=== PATIENT | female | born 1975 | race Caucasian/White ===

== ENCOUNTER 2018-03-24 11:04 | Emergency (ER) | payer MEDICAID, OTHER ==
[~2018-03-24] VITALS: Ht 162.6 cm; Wt 68.0 kg
[~2018-03-24 11:04] MED LIST: AQUAPHOR OINTM396 GM TP; KEFLEX500 MG ORAL; LEVAQUIN500 MG ORAL; NORCO 5-325 TA1 EACH ORAL; ZANTAC150 MG ORAL
[2018-03-24] MEDS ORDERED: NKM (11:12)
[2018-03-24] MEDS ORDERED: Acetaminophen 500mg (ES) tab ORAL ONE (12:30)
[2018-03-24] MEDS ORDERED: BENADRYL25 MG ORAL (12:42)
[2018-03-24] MEDS ORDERED: CLARITIN10 M2 ORAL (12:42)
[2018-03-24] MEDS ORDERED: TYLENOL EXTRA500 MG ORAL (12:42)
[2018-03-24] MEDS ORDERED: PREDNISONE20 MG ORAL (12:42)
--- NOTE | 2018-03-24 12:43 | Emergency Room Report ---
History of Present Illness General Chief Complaint: Headache Source: Medical Record Present Illness HPI 43-year-old female patient presents the ER complaining of allergic reaction and headache. Reports headache is been present for the last week. Patient states that the headache feels like a vice around her head, reports this is not the worst headache of her life. Reports no history of migraine. Denies neck pain. Denies fever, vomiting, vision changes, photophobia, phonophobia. Patient reports that yesterday she took ibuprofen for the headache symptoms and began to notice swelling over her left jaw after taking the pill. Patient reports history of similar symptoms in the past. Patient states she is able to take Tylenol without allergic symptoms. Patient reports that she was seen by dentist in April and told she may have a early beginnings of a tooth infection and wants to know if that is related. Patient denies tooth pain. Denies bleeding or drainage from mouth. Denies fever, chest pain, shortness of breath, abdominal pain. Denies dysuria, hematuria. Allergies: Coded Allergies: IBUPROFEN (Verified Allergy, Unknown, 03/24/18) Patient History Past Medical History: see triage record Last Menstrual Period: 03/15/18 Reviewed Nursing Documentation: PMH: Agreed; PSxH: Agreed Nursing Documentation-PMH Past Medical History: No History, Except For Hx Gastrointestinal Problems: Yes - GASTRITIS Review of Systems All Other Systems: negative except mentioned in HPI Physical Exam Vital Signs Date Time Temp Pulse Resp B/P (MAP) Pulse Ox O2 Delivery O2 Flow Rate FiO2 03/24/18 11:09 98.1 71 18 139/81 97 Room Air Sp02 EP Interpretation: reviewed, normal General Appearance: well appearing, no apparent distress, alert, GCS 15, non- toxic Head: normocephalic, atraumatic, other - Edema over left lower jaw, no palpable mass, no erythema, no warmth to touch Eyes: bilateral eye normal inspection, bilateral eye PERRL ENT: hearing grossly normal, normal pharynx, no angioedema, normal voice, TMs + canals normal, uvula midline, moist mucus membranes, other - Teeth missing, no gum erythema or edema, no fluctuance or induration, no teeth tender to palpation, no palpable mass Neck: full range of motion Respiratory: lungs clear, normal breath sounds, no rhonchi, no respiratory distress, no accessory muscle use, no wheezing, speaking full sentences, other - No stridor Cardiovascular #1: regular rate, rhythm, no edema Genitourinary: no CVA tenderness Musculoskeletal: back normal, digits/nails normal, gait/station normal, normal range of motion, non-tender Neurologic: alert, oriented x3, responsive, 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 Casanova is my supervising Physician whom patient management has been discussed with. Diagnostic Impression: Primary Impression: Headache Additional Impressions: Allergic reaction Dental infection ER Course Pt presents to ED c/o headache. DDX considered but are not limited to migraine, cluster MCNULTY, tension MCNULTY, meningitis, ICH, sinusitis, allergic reaction, anaphylaxis, dental infection, dental abscess, venous, dental caries. VITAL SIGNS are WNL, patient is afebrile ER COURSE No focal neuro deficits, cranial nerves intact as tested, signs and symptoms consistent with tension headache, by patient with Tylenol in the ER. Does require CT head at this time. No signs of anaphylaxis, angioedema, lungs clear to auscultation, nor stridor. Speaking normally, speaking full sentences, lungs clear to auscultation. Provide patient with prednisone, Pepcid, Benadryl while in the ER. Patient with ice pack. Swelling symptoms appear to have decreased on the ER. Will discharge patient home Claritin, Benadryl, prednisone for swelling symptoms. Advised patient to follow-up with literacy specialist for allergy testing. Clinical suspicion for odontogenic infection and will provide with Rx for clindamycin at this time, follow-up with dentist in 1-2 days. Nontoxic appearing, speaking full sentences, no active draining, mild edema, no trismus or vision changes. No signs of abscess, no fluctuance, erythema or edema. follow-up with dentist. Will provide abx for infection to cover for possible infection. provided with contact information for dentists. F/u with PCP and dentist for further treatment Patient reports pain improved. Patient is AOx3, neurologically intact, nontoxic appearing, and ambulatory. ER precautions given. DISCHARGE: At this time pt is stable for d/c to home. Patient is resting comfortably, in no acute distress, nontoxic appearing, talking and smiling. Will provide with patient care instructions and any necessary prescriptions. Patient to take medication as instructed. Care plan and follow-up instructions provided. Patient questions asked and answered. Patient instructed to follow-up with primary care provider in the next 3 days and discuss further referral with PCP to neurologist. ER precautions given. Patient instructed to return to ER immediately for any new or worsening of symptoms including but not limited to fever, neck stiffness , vision changes, and neurological symptoms. - Please note that this Emergency Department Report was dictated using [employer] technology software, occasionally this can lead to erroneous entry secondary to interpretation by the dictation equipment. Last Vital Signs Date Time Temp Pulse Resp B/P (MAP) Pulse Ox O2 Delivery O2 Flow Rate FiO2 03/24/18 11:09 98.1 71 18 139/81 97 Room Air Disposition: HOME, SELF-CARE Condition: Stable Scripts Clindamycin HCl (Clindamycin HCl) 300 Mg Capsule 300 MG ORAL EVERY 6 HOURS, #28 CAP Prov: Asher Torres.A. 03/24/18 Diphenhydramine Hcl* (BENADRYL*) 25 Mg Capsule 25 MG ORAL DAILY PRN for Itching, #30 CAP Prov: Asher Torres.A. 03/24/18 Loratadine (CLARITIN) 10 Mg Capsule 10 MG ORAL DAILY, #30 CAP Prov: Asher Torres.A. 03/24/18 Prednisone* (PREDNISONE*) 20 Mg Tablet 40 MG ORAL DAILY for 4 Days, #8 TAB Prov: Asher Torres.A. 03/24/18 Acetaminophen* (TYLENOL EXTRA STRENGTH*) 500 Mg Tablet 500 MG ORAL Q8H PRN for Prn Headache/Temp > 101, #30 TAB 0 Refills Prov: Asher Torres.Belle 03/24/18 Referrals: Ken Arias MD (PCP) Patient Instructions: Dental Caries, [id number], Drug Allergy, [id number], Tension Headache Additional Instructions: Followup with primary care provider in 2-3 days. Discussed referral to literacy specialist. Discussed referral to neurologist. Follow-up with dentist in 1-2 days. Plan ice to affected area for swelling symptoms Take medications as directed. Do not take ibuprofen. Take Tylenol for pain and headache symptoms. First dose of prednisone given in the ER, begin taking tomorrow. Take Claritin during the day and Benadryl at night for swelling symptoms. Patient questions asked and answered. ER precautions given, patient instructed to return to ER immediately for any new or worsening of symptoms chest pain, shortness of breath, intractable vomiting, difficulty breathing, worsening of swelling. Asher Torres Mar 24, 2018 12:43
[2018-03-24 13:08] VITALS: BP 121/72
[2018-03-24] MEDS ORDERED: CLEOCIN150 MG ORAL (13:53)
== END 2018-03-24 14:30 | disposition home or self-care (01) ==
LOC: EMR 11:56
DX: R51 Headache (principal); T78.40XA Allergy, unspecified, initial encounter; X58.XXXA Exposure to other specified factors, initial encounter; K04.7 Periapical abscess without sinus; Z88.6 Allergy status to analgesic agent
CPT/HCPCS: 99283; J7512

== ENCOUNTER → 2019-12-13 | Emergency (ER) | payer MEDICAID ==
[~2019-12-13] MED LIST changes: +BENADRYL25 MG ORAL; +CLARITIN10 M2 ORAL; +CLEOCIN150 MG ORAL; +FAMOTIDINE20 MG ORAL; +Lidocaine 2% Visc 15ml soln ORAL ONE; +Mylanta II UD 30ml ORAL ONE; +NKM; +PREDNISONE20 MG ORAL; +TYLENOL EXTRA500 MG ORAL
[2019-12-13 19:00] VITALS: BP_SYST 131; BP_SYST 135; BP_DIAS 78; BP_DIAS 88
--- NOTE | 2019-12-13 19:00 | NUR ---
ED Nurse Note: Patient presents with abdominal pain x2 days. She reports taking pantoprazole at home with no relief. No N/V/D noted. Patient is aaox4, breathing is normal and unlabored. NAD. Patient is resting in bed, will continue to monitor.
--- NOTE | 2019-12-13 21:50 | NUR ---
ED Nurse Note: Patient reports some relief in pain after being given medication. NAD. Will continue to monitor.
--- NOTE | 2019-12-13 22:25 | Emergency Room Report ---
History of Present Illness General Chief Complaint: Epigastric Pain Source: Patient Present Illness HPI 44-year-old female history of gastritis presents with epigastric pain x2 days, constant alleviated with pantoprazole, no aggravating factors severity is moderate, constant, no chest pain no dyspnea on exertion no nausea no vomiting patient presents for evaluation and treatment Allergies: Coded Allergies: IBUPROFEN (Verified Allergy, Unknown, 03/24/18) Patient History Past Medical History: see triage record Reviewed Nursing Documentation: PMH: Agreed; PSxH: Agreed Nursing Documentation-PMH Hx Gastrointestinal Problems: Yes - GASTRITIS Review of Systems All Other Systems: negative except mentioned in HPI Physical Exam Heart rate 70s, normal blood pressure, SaO2 99 Sp02 EP Interpretation: reviewed, normal General Appearance: well appearing, no apparent distress, alert Head: normocephalic, atraumatic Eyes: bilateral eye PERRL, bilateral eye EOMI ENT: uvula midline, moist mucus membranes Neck: supple, thyroid normal, supple/symm/no masses Respiratory: lungs clear, no respiratory distress, no retraction, no accessory muscle use Cardiovascular #1: normal peripheral pulses, regular rate, rhythm, no edema, no gallop, no murmur Gastrointestinal: non tender, soft, no guarding, no rebound Musculoskeletal: normal inspection Neurologic: alert, oriented x3 Psychiatric: mood/affect normal Skin: no rash, warm/dry Medical Decision Making Diagnostic Impression: Primary Impression: GERD (gastroesophageal reflux disease) Qualified Codes: K21.9 - Gastro-esophageal reflux disease without esophagitis ER Course 44-year-old female presents with vague epigastric pain differential diagnosis includes ACS, GERD, pancreatitis Labs drawn show no elevated lipase troponin negative electrolytes normal Given GI cocktail Maalox and viscous lidocaine with improvement in her epigastric pain We will change her Protonix to famotidine EKG Diagnostic Results EKG Time: 21:48 EP Interpretation: NSR, rate 71, QTc 443, no acute elevations, normal axis Rhythm Strip Diag. Results Rhythm Strip Time: 22:52 EP Interpretation: yes Rate: 75 Rhythm: NSR, no PVC's, no ectopy Disposition: HOME, SELF-CARE Condition: Stable Scripts Famotidine* (Pepcid 20mg tablet*) 20 Mg Tablet 20 MG ORAL TWICE A DAY, #60 TAB 0 Refills Prov: Melvin Jean MD 12/13/19 Referrals: Ken Arias MD (PCP) Patient Instructions: Food Choices for Gastroesophageal Reflux Disease, Adult, [id number], Gastroesophageal Reflux Disease, Adult, [id number] Additional Instructions: The patient was provided with discharge instructions, notified to follow-up with a primary care doctor and or specialist in the next 24-48 hours, and to return to the ED if they have worsening of their symptoms. Please note that this report is being documented using [employer] technology. This can lead to erroneous entry secondary to incorrect interpretation by the dictating instrument. Melvin Jean MD Dec 13, 2019 22:25
[2019-12-13 22:35] VITALS: BP 128/78
--- NOTE | 2019-12-13 22:35 | NUR ---
ER DISCHARGE NOTE: Patient is cleared to be discharged per ERMD, pt is aox4, on room air, with stable vital signs. pt was given dc and prescription instructions, pt was able to verbalize understanding, pt id band and iv site removed without complications. pt is able to ambulate with steady gait. pt took all belongings.
[2019-12-14 08:22] LABS: BILIRUBIN,TOTAL 0.6 MG/DL (0.2-1.0); BLOOD UREA NITROGEN 18 mg/dL (7-18); CALCIUM 9.4 MG/DL (8.5-10.1); CARBON DIOXIDE 27 MMOL/L (21-32); CHLORIDE 103 MMOL/L (98-107); CREATININE 0.8 MG/DL (0.55-1.30); POTASSIUM 4.2 MMOL/L (3.5-5.1); SODIUM 138 MMOL/L (136-145)
[2019-12-14 08:23] LABS: ALANINE AMINOTRANSFERASE 36 U/L (12-78); ALBUMIN 3.9 G/DL (3.4-5.0); ALKALINE PHOSPHATASE 83 U/L (46-116); ASPARTATE AMINO TRANSFERASE 32 U/L (15-37)
== END | disposition home or self-care (01) ==
LOC: EMR 18:00
DX: K21.9 Gastro-esophageal reflux disease without esophagitis (principal); Z88.6 Allergy status to analgesic agent
CPT/HCPCS: 36415; 80053; 83690; 84484; 93005; Z7502; 99283